=== PATIENT | female | born 1935 | race American Indian/Alaskan Native ===

== ENCOUNTER 2017-03-08 21:56 | Emergency (ER) | payer MEDICARE ==
[2017-03-08 21:56] VITALS: BMI 32.4
[2017-03-08 22:07] VITALS: TEMP 97.7
[2017-03-08] MEDS ORDERED: Labetalol 25mg/5ml Syringe IVP STA (22:21)
--- NOTE | 2017-03-08 22:32 | C.PDOC ---
History Of Present Illness 81 year old female presents to the ER with a complaint of a 5/10 frontal headache that began this morning. Patient states she took 2 tylenol in the morning along with her normal blood pressure medication. Patient reports she almost never has headaches; denies change in vision, nausea, or vomiting. Ran out of Metoprolol ER 100 MG and Methimazole 10 mg PO this AM Time Seen by Provider: 03/08/17 22:15 Chief Complaint (Nursing): Headache History Per: Patient History/Exam Limitations: no limitations Onset/Duration Of Symptoms: Hrs Current Symptoms Are (Timing): Still Present Preceeding Symptoms: None Associated Symptoms: denies: Photophobia, Blurred Vision, Nausea, Vomiting, Extremity Weakness Recent travel outside of the [place]: No Past Medical History Reviewed: Historical Data, Nursing Documentation, Vital Signs Vital Signs: Last Vital Signs Temp 97.7 F 03/08/17 22:04 Pulse 87 03/08/17 22:41 Resp 20 03/08/17 22:41 BP 170/75 H 03/08/17 22:41 Pulse Ox 97 03/08/17 22:41 - Medical History PMH: Diabetes, HTN, Hypercholesterolemia, Hyperthyroidism, Peripheral Edema Surgical History: No Surg Hx - [facility] Procedures ARTHROCENTESIS (10/18/13) OCCUPATIONAL THERAPY (10/26/13) PHYSICAL THERAPY NEC (10/26/13) Family History: States: Unknown Family Hx - Social History Hx Tobacco Use: No Hx Alcohol Use: No Hx Substance Use: No - Immunization History Hx Tetanus Toxoid Vaccination: Yes Hx Influenza Vaccination: Yes Hx Pneumococcal Vaccination: No Review Of Systems Constitutional: Negative for: Fever, Chills Eyes: Negative for: Vision Change Gastrointestinal: Negative for: Nausea, Vomiting Neurological: Positive for: Headache Physical Exam - Physical Exam Appears: Non-toxic, No Acute Distress Skin: Normal Color, Warm, Dry Head: Atraumatic, Normacephalic Eye(s): bilateral: Normal Inspection, PERRL, EOMI Oral Mucosa: Moist Neck: Normal, Supple Chest: Symmetrical, No Tenderness Cardiovascular: Rhythm Regular Respiratory: Normal Breath Sounds, No Rales, No Rhonchi, No Wheezing Gastrointestinal/Abdominal: Soft, No Tenderness Extremity: Normal ROM (x4) Neurological/Psych: Oriented x3, Normal Speech, Normal Cognition, Normal Motor, Normal Sensation ED Course And Treatment - Laboratory Results Result Diagrams: 03/08/17 22:31 03/08/17 22:31 Lab Interpretation: Normal (trop/etoh neg.) ECG: Interpreted By Me ECG Rhythm: Sinus Rhythm ECG Interpretation: Normal Rate From EC O2 Sat by Pulse Oximetry: 98 (Room air) Pulse Ox Interpretation: Normal - Radiology CXR: Interpreted by Me CXR Interpretation: Yes: No Acute Disease - CT Scan/US head Ct Other Rad Studies (CT/US): Interpreted By Me, Radiology Report Reviewed (neg) Progress Note: EKG, blood work, CT head, CXR, and urinalysis ordered. Toradol and trandate administered. Reevaluation Time: 23:16 Reassessment Condition: Improved (SALDAÑA completely resolved) Medical Decision Making Medical Decision Making: mild SALDAÑA with normal exam, prob related to ran out of metoprolol ER and Methimazole Disposition Doctor Will See Patient In The: Office Counseled Patient/Family Regarding: Studies Performed, Diagnosis - Disposition Disposition: HOME/ ROUTINE Disposition Time: 23:17 Condition: GOOD Forms: Loku (Belizean) - Clinical Impression Clinical Impression: Headache, Hypertension, Medication refill - Scribe Statement The provider has reviewed the documentation as recorded by the Scribe Raul Blancas All medical record entries made by the Scribe were at my direction and personally dictated by me. I have reviewed the chart and agree that the record accurately reflects my personal performance of the history, physical exam, medical decision making, and the department course for this patient. I have also personally directed, reviewed, and agree with the discharge instructions and disposition.
[2017-03-08 22:34] LABS: BASO % 0.9 % (0.0-2.0); EOS # 0.1 K/uL (0.0-0.7); EOS % 1.5 % (0.0-4.0); HEMATOCRIT 38.8 % (34.0-47.0); LYMPH % 35.9 % (20.0-40.0); MEAN CELL VOLUME 81.5 fL (81.0-99.0); MEAN CORPUSCULAR HEMOGLOBIN 26.5 pg (27.0-31.0); MEAN CORPUSCULAR HGB CONC 32.5 g/dL (33.0-37.0); MEAN PLATELET VOLUME 8.2 fL (7.2-11.7); MONO # 0.6 K/uL (0.0-0.8); RED CELL DISTRIBUTION WIDTH 14.6 % (11.5-14.5); WHITE BLOOD COUNT 5.6 K/uL (4.8-10.8)
[2017-03-08] MEDS ORDERED: Labetalol 25mg/5ml Syringe ONE (22:38)
[2017-03-08 22:41] LABS: CHLORIDE 98 mmol/L (98-107)
[2017-03-08 22:42] VITALS: RESP 20
[2017-03-08 22:42] LABS: POTASSIUM 3.6 mmol/L (3.6-5.2); SODIUM 136 mmol/L (132-148)
[2017-03-08 22:44] LABS: ALB/GLOB RATIO 1.1 (1.0-2.1); CARBON DIOXIDE 25 mmol/L (22-30); CHOLESTEROL 150 mg/dL (0-199); GFR AFRICAN-AMERICAN > 60; TOTAL PROTEIN 8.5 g/dL (6.3-8.3)
[2017-03-08 22:45] LABS: ALKALINE PHOSPHATASE 100 U/L (38-126); ALT/SGPT 33 U/L (9-52); AST/SGOT 32 U/L (14-36); BILIRUBIN,TOTAL 0.5 mg/dL (0.2-1.3); BLOOD UREA NITROGEN 22 mg/dL (7-17); CALCIUM 9.2 mg/dl (8.6-10.4); GLUCOSE,RANDOM 162 mg/dL (65-105)
[2017-03-08 22:46] LABS: ALCOHOL SERUM < 10 mg/dl (0-10)
[2017-03-08 22:58] LABS: INR 0.9
--- NOTE | 2017-03-08 23:25 | CT ---
EXAM: CT Head Without Intravenous Contrast CLINICAL HISTORY: 81 years old, female; Pain; Headache; Headache not specified; Additional info: Frontal headache, worst of life TECHNIQUE: Axial computed tomography images of the head/brain without intravenous contrast. All CT scans at this facility use one or more dose reduction techniques, viz.: automated exposure control; ma/kV adjustment per patient size (including targeted exams where dose is matched to indication; i.e. head); or iterative reconstruction technique. Coronal and sagittal reformatted images were created and reviewed. COMPARISON: No relevant prior studies available. FINDINGS: Brain: Hypodensity in the white matter consistent with chronic small vessel disease. No intracranial mass, mass effect, or midline shift. No hemorrhage. Ventricles: No hydrocephalus. Bones/joints: Unremarkable. No acute fracture. Soft tissues: Unremarkable. Sinuses: Left maxillary sinus mucous retention cyst versus polyp. Mastoid air cells: Unremarkable as visualized. No mastoid effusion. IMPRESSION: No acute intracranial abnormality.
[2017-03-08 23:28] VITALS: BP 151/75; PULSE 74; O2SAT 97
--- NOTE | 2017-03-09 08:55 | RAD ---
HISTORY: adm COMPARISON: 10/18/2013 FINDINGS: LUNGS: The lungs are clear. PLEURA: No significant pleural effusion identified, no pneumothorax apparent. CARDIOVASCULAR: Normal. OSSEOUS STRUCTURES: No significant abnormalities. VISUALIZED UPPER ABDOMEN: Normal. OTHER FINDINGS: There is chronic elevation of the right hemidiaphragm. IMPRESSION: No acute findings.
--- NOTE | 2017-03-10 13:54 | CARD ---
APPROVED REPORT EKG Measurement Heart [id number] <Conclusion> Sinus rhythm with 1st degree AV block Voltage criteria for left ventricular hypertrophy T wave abnormality, consider lateral ischemia Abnormal ECG
== END 2017-03-08 23:37 | disposition home or self-care (01) ==
LOC: C.ER 21:56
DX: I10 Essential (primary) hypertension (principal); R51 Headache; Z76.0 Encounter for issue of repeat prescription
CPT/HCPCS: 70450; 71010; 80053; 80061; 83036; 84484; 85025; 85610; 85730; 93005; 96374; 96375; 99285; G0480; J1885